=== PATIENT | male | born 1980 | race Caucasian/White ===

== ENCOUNTER 2020-12-21 16:15 | Emergency (ER) | payer SELFPAY ==
[~2020-12-21] VITALS: Ht 182.9 cm; Wt 79.4 kg
[2020-12-21] MEDS ORDERED: SULTRIDS PO (17:05)
[2020-12-21] MEDS ORDERED: CEPH500 PO (17:05)
== END 2020-12-21 17:15 | disposition home or self-care (01) ==
LOC: ER 16:15
DX: L02.511 Cutaneous abscess of right hand (principal); F17.200 Nicotine dependence, unspecified, uncomplicated
CPT/HCPCS: 10060; 99283-25; A9270; A9270-GY

== ENCOUNTER 2021-05-13 00:30 | Emergency (ER) | payer OTHER ==
[~2021-05-13] VITALS: Ht 182.9 cm; Wt 78.5 kg
[~2021-05-13 00:30] MED LIST: CEPH500 PO; SULTRIDS PO
== END 2021-05-13 01:48 | disposition home or self-care (01) ==
LOC: ER 00:30
DX: S93.402A Sprain of unspecified ligament of left ankle, initial encounter (principal); F17.200 Nicotine dependence, unspecified, uncomplicated; X50.1XXA Overexertion from prolonged static or awkward postures, initial encounter
CPT/HCPCS: 73610; 99283-25; A9270

== ENCOUNTER 2023-05-07 05:22 | Emergency (ER) | payer OTHER ==
[~2023-05-07] VITALS: Ht 182.9 cm; Wt 77.1 kg
[2023-05-07 05:38] VITALS: BP 140/75
[2023-05-07] MEDS ORDERED: SULTRIDS PO (06:22)
== END 2023-05-07 06:32 | disposition home or self-care (01) ==
LOC: ER 05:22
DX: L73.9 Follicular disorder, unspecified (principal); R59.0 Localized enlarged lymph nodes; F17.200 Nicotine dependence, unspecified, uncomplicated
CPT/HCPCS: 96372; 99282-25; A9270; J1885